=== PATIENT | female | born 1960 | race Caucasian/White ===

== ENCOUNTER 2025-03-06 09:49 | Emergency (ER) | payer BC | END 2025-03-06 11:06 | disposition home or self-care (01) | LOC: JP.ED 09:49 | DX: S60.454A Superficial foreign body of right ring finger, initial encounter (principal); T63.463A Toxic effect of venom of wasps, assault, initial encounter; Z88.0 Allergy status to penicillin; Z88.2 Allergy status to sulfonamides | CPT/HCPCS: 99283 ==